=== PATIENT | female | born 1995 | race Caucasian/White ===

== ENCOUNTER 2016-10-31 14:00 | Emergency (ER) | payer MEDICAID, OTHER ==
[~2016-10-31] VITALS: Wt 58.0 kg
[2016-10-31] MEDS ORDERED: ACETAMINOPHEN 325 MG TAB PO STA (15:20)
[2016-10-31 15:53] LABS: BASOPHILS % 0.4 % (0.0-2.0); EOSINOPHILS % 0.2 % (0.0-7.0); HEMATOCRIT 38.2 % (37.0-47.0); HEMOGLOBIN 12.9 g/dl (12.0-16.0); LYMPHOCYTES # 1.9 10^3/ul (0.8-2.9); LYMPHOCYTES % 16.9 % (18.0-55.0); MEAN CORPUSCULAR HEMOGLOBIN 29.9 pg (29.0-33.0); MEAN CORPUSCULAR HGB CONC 33.7 g/dl (32.0-37.0); MEAN CORPUSCULAR VOLUME 88.6 fl (72.0-104.0); MEAN PLATELET VOLUME 9.9 fl (7.4-10.4); MONOCYTE # 0.5 10^3/ul (0.3-0.9); MONOCYTES % 4.3 % (0.0-13.0); NEUTROPHIL # 8.6 10^3/ul (1.6-7.5); NEUTROPHILS % 78.2 % (30.0-74.0); PLATELET COUNT 214 10^3/UL (140-440); RED BLOOD COUNT 4.31 10^6/ul (4.20-5.40); RED CELL DISTRIBUTION WIDTH 13.5 % (11.5-14.5)
[2016-10-31 16:09] LABS: CONDITION 1
[2016-10-31 16:15] LABS: ADD UMIC YES; URINE BILIRUBIN (Dip) NEGATIVE (NEGATIVE); URINE BLOOD (Dip) 3+ (NEGATIVE); URINE COLOR LT. RED (YELLOW); URINE GLUCOSE (Dip) NEGATIVE (NEGATIVE); URINE KETONES (Dip) 3+ (NEGATIVE); URINE LEUKOCYTE ESTERASE (Dip) TRACE (NEGATIVE); URINE NITRITE (Dip) NEGATIVE (NEGATIVE); URINE TOTAL PROTEIN (Dip) 2+ (NEGATIVE); URINE UROBILINOGEN (Dip) 0.2 E.U./dL (0.1-1.0)
[2016-10-31 16:37] LABS: SQUAMOUS EPITHELIAL CELL,UR FEW; URINE RBCS >200 /HPF (0)
--- NOTE | 2016-10-31 17:04 | RADRPT ---
PROCEDURE: OB Ultrasound. CLINICAL INDICATION: Positive test. Vaginal bleeding. TECHNIQUE: Ultrasound of the pelvis was performed with transabdominal sonography in the axial and sagittal planes. COMPARISON: No prior study is available for comparison. FINDINGS: There is a single intrauterine gestational sac. pole and yolk sac are present. There is heart motion. heart rate is 176 beats per minute. [place]-rump length is 3.68 cm. Mean sac diameter is 4.25 cm. Menstrual age by ultrasound dates is 10 weeks 2 days. This indicates an expected date of delivery of 05/27/2017. The right ovary is not visualized. The left ovary appears normal measuring 3.2 x 1.6 x 1.8 cm. Color Doppler and pulsed Doppler sonography demonstrate normal flow to the the left ovary There is no other pelvic mass or free fluid. IMPRESSION: 1. Single live intrauterine gestation of 10 weeks 2 days menstrual age by ultrasound dates. 2. Expected date of delivery is 05/27/2017. RPTAT: QQ .Randy Vallejo MD, MD Date Time Electronically viewed and signed by .Randy Vallejo MD, on 10/31/2016 17:04 .R/
[2016-10-31] MEDS ORDERED: ACET325T33 PO (17:23)
[2016-10-31] MEDS ORDERED: CEPH-443 PO (17:23)
[2016-10-31 17:46] VITALS: BP 125/63; PULSE 77; RESP 18
--- NOTE | 2016-10-31 17:58 | ERD ---
ER Documentation Chief Complaint Date/Time DATE: 10/31/16 TIME: 17:54 Chief Complaint VAG BLEED APPROX 11WKS PREG, MILD LOW ABD CRAMP HPI 21-year-old female with no significant past medical history is a presents to the ED complaining of lower abdominal cramping that started a few days ago and states that she is currently about 10 weeks . States that she has vaginal bleeding that started earlier today and has had to change 2 pads. Reports that her RESIDENTIAL ROOFER is Dr. Quinton Gutierrez. States that her last menses was in the beginning of July. She is unsure of the exact date. Denies any vaginal discharge, nausea, vomiting, diarrhea, chest pain, shortness of breath, constipation, dysuria, urgency, frequency, hematuria. ROS All systems reviewed and are negative except as per history of present illness. Medications Home Meds Active Scripts Acetaminophen* (Tylophen*) 500 Mg Capsule, 1 CAP PO Q6H Y for PAIN AND OR ELEVATED TEMP, #20 CAP Prov:MUKUND IVAN NP 11/02/16 Cephalexin* (Keflex*) 500 Mg Capsule, 500 MG PO QID for 7 Days, CAP Prov:LYNN SCHWAB PA-C 10/31/16 Acetaminophen* (Tylenol*) 325 Mg Tablet, 1 TAB PO Q8 Y for PAIN AND OR ELEVATED TEMP, #20 TAB Prov:LYNN SCHWAB PA-C 10/31/16 Allergies Allergies: Coded Allergies: No Known Allergy (Unverified , 11/02/16) PMhx/Soc Medical and Surgical Hx: pt denies Medical Hx, pt denies Surgical Hx Hx Alcohol Use: No Hx Substance Use: No Hx Tobacco Use: No Physical Exam Vitals Vital Signs Date Time Temp Pulse Resp B/P Pulse Ox O2 Delivery O2 Flow Rate FiO2 10/31/16 17:46 77 18 125/63 99 Room Air 10/31/16 14:13 98.2 101 20 125/87 98 Physical Exam Const: Uws-fre-lroazsrxf, well-nourished. In no acute distress. Head: Atraumatic, normocephalic Eyes: Normal Conjunctiva without injection. No purulent discharge. ENT: Normal external ear, nose. Moist oropharynx without tonsillar exudates. Non -erythematous pharynx. Uvula midline. No drooling. No trismus. Neck: No cervical midline tenderness. Full range of motion. No meningismus. No cervical lymphadenopathy. No JVD. Resp: Clear to auscultation bilaterally. No wheezing, rhonchi, rales, or crackles. No accessory muscle use. No retractions. Cardio: Regular rate and rhythm. No murmurs, rubs or gallops. Abd: Soft, slight suprapubic tenderness, non distended. Normal bowel sounds. No palpable masses. No rebound tenderness. No guarding. Negative McBurney's point. Negative psoas sign. Negative obturator sign. Skin: No petechiae or rashes Back: No midline tenderness. No CVA tenderness. Ext: No cyanosis, or edema. Neur: Awake and alert. Normal gait. Normal coordination. Psych: Normal Mood and Affect Result Diagram: 10/31/16 1538 Results 24 hrs Laboratory Tests Test 10/31/16 15:38 10/31/16 15:43 Basophils # 0.010^3/ul Basophils % 0.4% Beta HCG, Quantitative 407457.0mIU/ml Eosinophils # 0.010^3/ul Eosinophils % 0.2% Hematocrit 38.2% Hemoglobin 12.9g/dl Lymphocytes # 1.910^3/ul Lymphocytes % 16.9% Mean Corpuscular Hemoglobin 29.9pg Mean Corpuscular Hemoglobin Concent 33.7g/dl Mean Corpuscular Volume 88.6fl Mean Platelet Volume 9.9fl Monocytes # 0.510^3/ul Monocytes % 4.3% Neutrophils # 8.610^3/ul Neutrophils % 78.2% Nucleated Red Blood Cells # 0.010^3/ul Nucleated Red Blood Cells % 0.0/100WBC Platelet Count 34315^3/UL Red Blood Count 4.3110^6/ul Red Cell Distribution Width 13.5% White Blood Count 11.010^3/ul Urine Bilirubin NEGATIVE Urine Clarity CLOUDY Urine Color LT. RED Urine Glucose NEGATIVE% Urine Hemoglobin 3+ Urine Ketones 3+ Urine Leukocyte Esterase TRACE Urine Microscopic RBC >200/HPF Urine Microscopic WBC 2-5/HPF Urine Nitrite NEGATIVE Urine Specific [place] >=1.030 Urine Squamous Epithelial Cells FEW Urine Total Protein 2+ Urine Urobilinogen 0.2 E.U./dL Urine pH 5.5 Current Medications Medications (Trade) Dose Ordered Sig/Joseph Route PRN Reason Start Time Stop Time Status Last Admin Dose Admin Acetaminophen (Tylenol Tab) 650 mg ONCE STAT PO 10/31/16 15:20 10/31/16 15:22 DC 10/31/16 15:32 Procedures/MDM This is a 21-year-old female with no significant past medical history who is a presents to the ED complaining of currently being and having vaginal bleeding. Patient is afebrile and nontoxic-appearing. Patient has normal vital signs. An ultrasound, beta-hCG, CBC, type and RH, UA was ordered to evaluate patient. CBC: No evidence of severe infection or anemia Urine: No elevation in nitrites, trace leukocyte esterase, hematuria. Rh: O positive. No indication for Rhogam at this time. beta Hc PROCEDURE: OB Ultrasound. CLINICAL INDICATION: Positive test. Vaginal bleeding. TECHNIQUE: Ultrasound of the pelvis was performed with transabdominal sonography in the axial and sagittal planes. COMPARISON: No prior study is available for comparison. FINDINGS: There is a single intrauterine gestational sac. pole and yolk sac are present. There is heart motion. heart rate is 176 beats per minute. [place]-rump length is 3.68 cm. Mean sac diameter is 4.25 cm. Menstrual age by ultrasound dates is 10 weeks 2 days. This indicates an expected date of delivery of 05/27/2017. The right ovary is not visualized. The left ovary appears normal measuring 3.2 x 1.6 x 1.8 cm. Color Doppler and pulsed Doppler sonography demonstrate normal flow to the the left ovary There is no other pelvic mass or free fluid. IMPRESSION: 1. Single live intrauterine gestation of 10 weeks 2 days menstrual age by ultrasound dates. 2. Expected date of delivery is 05/27/2017. Patient's bleeding symptoms have stabilized while in the department. Patient has a single IUP estimated to be 10 weeks and 2 days. Low suspicion for symptomatic anemia, ectopic , sepsis, PID, appendicitis, ovarian torsion, tubo-ovarian abscess, surgical abdomen, or other emergent conditions. Patient was educated that there is a risk for threatened . Discharge medications: Keflex, Tylenol Patient to follow up with RESIDENTIAL ROOFER in 2 days for further evaluation and treatment. Patient is to return sooner to the ED for any worsening symptoms. Patient's questions were answered. Patient understood and agreed with discharge plan. Departure Diagnosis: Primary Impression: Vaginal bleeding in patient at less than 20 weeks ges... Condition: Stable Patient Instructions: Urinary Tract Infections in Women, Bleeding During Early Referrals: MELANI TYLER MD (PCP) [facility] YOU HAVE RECEIVED A MEDICAL SCREENING EXAM AND THE RESULTS INDICATE THAT YOU DO NOT HAVE A CONDITION THAT REQUIRES URGENT TREATMENT IN THE EMERGENCY DEPARTMENT. FURTHER EVALUATION AND TREATMENT OF YOUR CONDITION CAN WAIT UNTIL YOU ARE SEEN IN YOUR DOCTORS OFFICE WITHIN THE NEXT 1-2 DAYS. IT IS YOUR RESPONSIBILITY TO MAKE AN APPOINTMENT FOR FOLOW-UP CARE. IF YOU HAVE A PRIMARY DOCTOR --you should call your primary doctor and schedule an appointment IF YOU DO NOT HAVE A PRIMARY DOCTOR YOU CAN CALL OUR PHYSICIAN REFERRAL HOTLINE AT IF YOU CAN NOT AFFORD TO SEE A PHYSICIAN YOU CAN CHOSE FROM THE FOLLOWING [facility] [address] [facility] [address] [facility] [facility] [address] [facility] [address] [facility] [address] [facility]. [facility] [address] [facility]. [facility] YOU HAVE RECEIVED A MEDICAL SCREENING EXAM AND THE RESULTS INDICATE THAT YOU DO NOT HAVE A CONDITION THAT REQUIRES URGENT TREATMENT IN THE EMERGENCY DEPARTMENT. FURTHER EVALUATION AND TREATMENT OF YOUR CONDITION CAN WAIT UNTIL YOU ARE SEEN IN YOUR DOCTORS OFFICE WITHIN THE NEXT 1-2 DAYS. IT IS YOUR RESPONSIBILITY TO MAKE AN APPOINTMENT FOR FOLOW-UP CARE. IF YOU HAVE A PRIMARY DOCTOR --you should call your primary doctor and schedule and appointment IF YOU DO NOT HAVE A PRIMARY DOCTOR YOU CAN CALL OUR PHYSICIAN REFERRAL HOTLINE AT . IF YOU CAN NOT AFFORD TO SEE A PHYSICIAN YOU CAN CHOSE FROM THE FOLLOWING [facility] INSTITUTIONS: [facility] [address] [place] [address] [facility] [address] [place] [address] [facility] [address] [place] [address] RESIDENTIAL R[place] [address] [facility] [address] [place] [address] OFFICE FAX , [facility] [address] [place] [address] [address] [facility] [address] [place] [address] [address] VELEZ [facility] [address], [address], [facility] [address] [facility] [address] [place] [address] [facility] [address] [place] [address] [address] [facility] [address] - BRODIE SMITH [address], [place] [address] [address] TARANGO, TOM [address] [facility], [place] [address] [address] [facility] [address] [place], [place] [id number] [facility] Hours: 8:00 am - 5:00 pm Additional Instructions: FOLLOW UP WITH YOUR RESIDENTIAL ROOFER in 2 days. Pelvic Rest recommended. No heavy lifting. Return to this facility if you are not improving as expected. LYNN SCHWAB PA-C Oct 31, 2016 17:58
== END 2016-10-31 17:47 | disposition home or self-care (01) ==
LOC: FTE 14:00
DX: O20.9 Hemorrhage in early pregnancy, unspecified (principal); Z3A.10 10 weeks gestation of pregnancy
CPT/HCPCS: 36415; 76801; 81001; 84702; 85025; 86900; 86901; Z7502; Z7610; 81003

== ENCOUNTER 2016-11-02 00:15 | Emergency (ER) | payer MEDICAID ==
[~2016-11-02] VITALS: Ht 162.6 cm; Wt 61.8 kg
[~2016-11-02 00:15] MED LIST: ACET325T33 PO; CEPH-443 PO
[2016-11-02 00:24] VITALS: Ht 162.6 cm; Wt 61.8 kg
--- NOTE | 2016-11-02 04:32 | RADRPT ---
PROCEDURE: ULTRASOUND OBSTETRICAL CLINICAL INDICATION: 21-year-old female with vaginal bleeding. TECHNIQUE: Multiple sonographic images of the pelvis were obtained. The images were reviewed on a PACS workstation. COMPARISON: Ultrasound OB October 31, 2016. FINDINGS: There is a single intrauterine gestation. There is a subchorionic hemorrhage identified measuring ap proximately 2.2 x 3.3 cm. There is an additional heterogeneous focus of abnormal echogenicity withi n the lower uterine segment measuring approximately 2.7 x 3.1 x 4.6 cm suggestive of blood products. The mean sac diameter is 4.55 cm. There is a pole present with a crown-rump length of 3.97 cm . This yields an estimated gestational age of 10 weeks and 4 days. The estimated date of delivery is May 27, 2017. Cardiac activity is present at 166 beats per minute. There is no evidence for free fluid. The ovaries were not visualized bilaterally. No adnexal masses are noted. IMPRESSION: 1. Single intrauterine gestation of approximately 10 weeks 4 days with moderate subchorionic hemorr yajaira. The estimated date of delivery is May 27, 2017. 2. Abnormal echogenicity within the lower uterine segment suggestive of blood products. 3. The ovaries were not visualized bilaterally. .Warren Ko MD, Date Time Electronically viewed and signed by .Warren Ko MD, on 11/02/2016 04:31 .Teressa
--- NOTE | 2016-11-02 04:41 | ERD ---
ER Documentation Chief Complaint Date/Time DATE: 11/02/16 TIME: 04:35 Chief Complaint Vaginal bleeding and pelvic pain since 2329. HPI 21-year-old female presents to emergency department for complaints of vaginal bleeding and pelvic pain started at 11:30 last night. Patient has been having vaginal bleeding, passed more clots, soaking 1 pad. Patient is approximately 10 weeks . 1 para 0 0. Patient was seen here 2 days ago for the same problem, was bleeding at that time. Patient is complaining of pelvic pain, cramping pain, 3/10 scale, accompanying the vaginal bleeding. Patient denies hematuria or dysuria. Patient denies any fever or chills. LMP 03/2016 ROS All systems reviewed and are negative except as per history of present illness. Medications Home Meds Active Scripts Acetaminophen* (Tylophen*) 500 Mg Capsule, 1 CAP PO Q6H Y for PAIN AND OR ELEVATED TEMP, #20 CAP Prov:MUKUND IVAN NP 11/02/16 Cephalexin* (Keflex*) 500 Mg Capsule, 500 MG PO QID for 7 Days, CAP Prov:LYNN SCHWAB PA-C 10/31/16 Acetaminophen* (Tylenol*) 325 Mg Tablet, 1 TAB PO Q8 Y for PAIN AND OR ELEVATED TEMP, #20 TAB Prov:LYNN SCHWAB PA-C 10/31/16 Allergies Allergies: Coded Allergies: No Known Allergy (Unverified , 11/02/16) PMhx/Soc Medical and Surgical Hx: pt denies Medical Hx, pt denies Surgical Hx History of Surgery: No Anesthesia Reaction: No Hx Neurological Disorder: No Hx Respiratory Disorders: No Hx Cardiac Disorders: No Hx Psychiatric Problems: No Hx Miscellaneous Medical Probl: No Hx Alcohol Use: No Hx Substance Use: No Hx Tobacco Use: No Smoking Status: Never smoker FmHx Family History: No coronary disease, No diabetes, No other Physical Exam Vitals Vital Signs Date Time Temp Pulse Resp B/P Pulse Ox O2 Delivery O2 Flow Rate FiO2 11/02/16 06:54 98.2 75 19 118/74 100 Room Air 11/02/16 00:24 98.5 87 18 110/66 99 Physical Exam GENERAL: The patient is well developed and appropriate for usual state of health, in no apparent distress. CHEST: Clear to auscultation bilaterally. There are no rales, wheezes or rhonchi. HEART: Regular rate and rhythm. No murmurs, clicks, rubs or gallops. No S3 or S4. ABDOMEN: Soft, nontender and nondistended. Good bowel sounds. No rebound or guarding. No gross peritonitis. No gross organomegaly or masses. No Nicolas sign or McBurney point tenderness. BACK: No midline or flank tenderness. EXTREMITIES: Equal pulses bilaterally. There is no peripheral clubbing, cyanosis or edema. No focal swelling or erythema. Full range of motion. Grossly neurovascularly intact. NEURO: Alert and oriented. Cranial nerves 2-12 intact. Motor strength in all 4 extremities with 5/5 strength. Sensation grossly intact. Normal speech and gait. SKIN: There is no apparent rash or petechia. The skin is warm and dry. HEMATOLOGIC AND LYMPHATIC: There is no evidence of excessive bruising or lymphedema. No gross cervical, axillary, or inguinal lymphadenopathy. VAGINAL: moderate amount of blood in the vaginal vault. The cervical os is closed, there is no adnexal tenderness or cervical motion tenderness. Result Diagram: 11/02/16 0433 Results 24 hrs Laboratory Tests Test 11/02/16 04:33 Basophils # 0.010^3/ul Basophils % 0.4% Beta HCG, Quantitative 946225.0mIU/ml Eosinophils # 0.010^3/ul Eosinophils % 0.6% Hematocrit 35.9% Hemoglobin 11.9g/dl Lymphocytes # 2.010^3/ul Lymphocytes % 24.2% Mean Corpuscular Hemoglobin 29.5pg Mean Corpuscular Hemoglobin Concent 33.3g/dl Mean Corpuscular Volume 88.8fl Mean Platelet Volume 9.8fl Monocytes # 0.410^3/ul Monocytes % 5.1% Neutrophils # 5.610^3/ul Neutrophils % 69.7% Nucleated Red Blood Cells # 0.010^3/ul Nucleated Red Blood Cells % 0.0/100WBC Platelet Count 41714^3/UL Red Blood Count 4.0410^6/ul Red Cell Distribution Width 13.5% Urine Bacteria FEW Urine Bilirubin NEGATIVE Urine Clarity CLEAR Urine Color LT. YELLOW Urine Glucose NEGATIVE% Urine Hemoglobin 3+ Urine Ketones NEGATIVE Urine Leukocyte Esterase NEGATIVE Urine Microscopic RBC 2-5/HPF Urine Microscopic WBC 0-2/HPF Urine Nitrite NEGATIVE Urine Specific [place] <=1.005 Urine Squamous Epithelial Cells MODERATE Urine Total Protein NEGATIVE Urine Urobilinogen 0.2 E.U./dL Urine pH 5.5 White Blood Count 8.110^3/ul PROCEDURE: ULTRASOUND OBSTETRICAL CLINICAL INDICATION: 21-year-old female with vaginal bleeding. TECHNIQUE: Multiple sonographic images of the pelvis were obtained. The images were reviewed on a PACS workstation. COMPARISON: Ultrasound OB October 31, 2016. FINDINGS: There is a single intrauterine gestation. There is a subchorionic hemorrhage identified measuring approximately 2.2 x 3.3 cm. There is an additional heterogeneous focus of abnormal echogenicity within the lower uterine segment measuring approximately 2.7 x 3.1 x 4.6 cm suggestive of blood products. The mean sac diameter is 4.55 cm. There is a pole present with a crown-rump length of 3.97 cm. This yields an estimated gestational age of 10 weeks and 4 days. The estimated date of delivery is May 27, 2017. Cardiac activity is present at 166 beats per minute. There is no evidence for free fluid. The ovaries were not visualized bilaterally. No adnexal masses are noted. IMPRESSION: 1. Single intrauterine gestation of approximately 10 weeks 4 days with moderate subchorionic hemorrhage. The estimated date of delivery is May 27, 2017. 2. Abnormal echogenicity within the lower uterine segment suggestive of blood products. 3. The ovaries were not visualized bilaterally. .Warren Ko MD, MD Date Time Electronically viewed and signed by .Warren Ko MD, on 11/02/2016 04:31 .M/ CC: MUKUND IVAN NP Procedures/MDM Medical Decision Making: Patients vaginal bleeding is most likely consistent of possible threatened . Patient does not show any evidence of hypovolemic shock. Patients hemoglobin and hematocrit is stable. There is low suspicion for ectopic . KOBE results show a viable at 10 weeks with subchorionic hemorrhage most likely causing the bleeding BetaHCG Quantitative is appropriate for The patient is Rh+, does not need RhoGAM this time. There is no signs of symptoms of dehydration. There is low suspicion for sepsis. Patient appears well and is hemodynamically stable. Disposition: Home. Condition: Stable Disposition: Tylenol Instructions: Patient is advised to do bed rest, avoid heavy lifting, and avoid having sex until cleared by OB doctor. Patient is advised to follow up with OB doctor or here at the ER in 48 hours for reevaluation of symptoms, repeat beta HCG quantitative and ultrasound. Patient is advised that is symptoms are worst, severe bleeding, dizziness, severe abdominal pain, fever, worst signs and symptoms to return to the emergency department immediately. Departure Diagnosis: Primary Impression: Subchorionic hemorrhage Fetus number: single or unspecified fetus Trimester: first trimester Qualified Code: O41.8X10 - Subchorionic hemorrhage, first trimester, not applicable or unspecified fetus Additional Impressions: Intrauterine Vaginal bleeding Condition: Stable Patient Instructions: Possible Miscarriage (Threatened ) Additional Instructions: Patient is advised to do bed rest, avoid heavy lifting, and avoid having sex until cleared by OB doctor. Patient is advised to follow up with OB doctor or here at the ER in 48 hours for reevaluation of symptoms, repeat beta HCG quantitative and ultrasound. Patient is advised that is symptoms are worst, severe bleeding, dizziness, severe abdominal pain, fever, worst signs and symptoms to return to the emergency department immediately. MUKUND IVAN NP Nov 02, 2016 04:41
[2016-11-02 05:02] LABS: BASOPHILS % 0.4 % (0.0-2.0); EOSINOPHILS % 0.6 % (0.0-7.0); HEMATOCRIT 35.9 % (37.0-47.0); HEMOGLOBIN 11.9 g/dl (12.0-16.0); LYMPHOCYTES % 24.2 % (18.0-55.0); MEAN CORPUSCULAR HEMOGLOBIN 29.5 pg (29.0-33.0); MEAN CORPUSCULAR HGB CONC 33.3 g/dl (32.0-37.0); MEAN CORPUSCULAR VOLUME 88.8 fl (72.0-104.0); MEAN PLATELET VOLUME 9.8 fl (7.4-10.4); MONOCYTE # 0.4 10^3/ul (0.3-0.9); MONOCYTES % 5.1 % (0.0-13.0); NEUTROPHIL # 5.6 10^3/ul (1.6-7.5); NEUTROPHILS % 69.7 % (30.0-74.0); PLATELET COUNT 206 10^3/UL (140-440); RED BLOOD COUNT 4.04 10^6/ul (4.20-5.40); RED CELL DISTRIBUTION WIDTH 13.5 % (11.5-14.5); UNCORRECTED WBC 8.1 10^3/ul (4.8-10.8); WHITE BLOOD COUNT 8.1 10^3/ul (4.8-10.8)
[2016-11-02 05:04] LABS: CONDITION 1
[2016-11-02 05:14] LABS: ADD UMIC YES; URINE BILIRUBIN (Dip) NEGATIVE (NEGATIVE); URINE BLOOD (Dip) 3+ (NEGATIVE); URINE COLOR LT. YELLOW (YELLOW); URINE GLUCOSE (Dip) NEGATIVE (NEGATIVE); URINE KETONES (Dip) NEGATIVE (NEGATIVE); URINE LEUKOCYTE ESTERASE (Dip) NEGATIVE (NEGATIVE); URINE NITRITE (Dip) NEGATIVE (NEGATIVE); URINE TOTAL PROTEIN (Dip) NEGATIVE (NEGATIVE); URINE UROBILINOGEN (Dip) 0.2 E.U./dL (0.1-1.0)
[2016-11-02 05:36] LABS: BACTERIA,URINE FEW; SQUAMOUS EPITHELIAL CELL,UR MODERATE
[2016-11-02] MEDS ORDERED: ACET500C5 PO (05:52)
[2016-11-02 06:54] VITALS: BP 118/74; PULSE 75; RESP 19; TEMP 98.2
== END 2016-11-02 06:55 | disposition home or self-care (01) ==
LOC: FTE 00:15
DX: O41.8X10 Other specified disorders of amniotic fluid and membranes, first trimester, not applicable or unspecified (principal); R10.2 Pelvic and perineal pain; Z3A.10 10 weeks gestation of pregnancy
CPT/HCPCS: 36415; 76801; 81001; 84702; 85025; Z7502; 81003

== ENCOUNTER 2017-05-07 18:23 | Inpatient (IN) | payer OTHER ==
[~2017-05-07] VITALS: Ht 162.6 cm; Wt 74.1 kg
[~2017-05-07 18:23] MED LIST changes: +ACET500C5 PO
[2017-05-07] MEDS: LACTATED RINGER'S 1,000 ML IV SCH (19:38)
[2017-05-07 19:42] VITALS: Ht 162.6 cm; Wt 74.1 kg
[2017-05-07] MEDS ORDERED: IBUPROFEN 600 MG TAB PO PRN (20:00)
[2017-05-07] MEDS ORDERED: MISOPROSTOL 200 MCG TAB PR PRN (20:00)
[2017-05-07] MEDS ORDERED: LACTATED RINGER'S 1,000 ML IV PRN (20:00)
[2017-05-07] MEDS ORDERED: CARBOPROST 250 MCG INJ IM PRN (20:00)
[2017-05-07] MEDS ORDERED: OXYTOCIN 30 UNITS/LR 500 ML IV PRN (20:00)
[2017-05-07] MEDS ORDERED: METHYLERGONOVINE 0.2 MG INJ IM PRN (20:00)
[2017-05-07] MEDS ORDERED: OXYTOCIN 30 UNITS/LR 500 ML IV SCH ×2 (20:00)
[2017-05-07] MEDS ORDERED: BUTORPHANOL 2 MG INJ IV PRN (20:00)
[2017-05-07] MEDS ORDERED: AMPICILLIN 2 GM/NS (PMX) 100 ML IV ONE (20:00)
[2017-05-07] MEDS ORDERED: LIDOCAINE 1% (MPF) 30 ML INJ INJ PRN (20:00)
[2017-05-07 20:31] LABS: BASOPHILS % 0.4 % (0.0-2.0); EOSINOPHILS % 0.3 % (0.0-7.0); HEMATOCRIT 34.9 % (37.0-47.0); HEMOGLOBIN 11.3 g/dl (12.0-16.0); LYMPHOCYTES # 2.1 10^3/ul (0.8-2.9); LYMPHOCYTES % 20.1 % (15.0-51.0); MEAN CORPUSCULAR HEMOGLOBIN 26.4 pg (29.0-33.0); MEAN CORPUSCULAR HGB CONC 32.4 g/dl (32.0-37.0); MEAN CORPUSCULAR VOLUME 81.5 fl (82.0-101.0); MEAN PLATELET VOLUME 12.7 fl (7.4-10.4); MONOCYTE # 0.5 10^3/ul (0.3-0.9); MONOCYTES % 4.8 % (0.0-11.0); NEUTROPHILS % 73.4 % (39.0-77.0); PLATELET COUNT 214 10^3/UL (140-415); RED BLOOD COUNT 4.28 10^6/ul (4.20-5.40); RED CELL DISTRIBUTION WIDTH 14.7 % (11.5-14.5); WHITE BLOOD COUNT 10.3 10^3/ul (4.8-10.8)
[2017-05-07 20:39] LABS: INR 0.95; PROTIME 12.7 Sec (12.2-14.2)
[2017-05-07 20:40] LABS: PARTIAL THROMBOPLASTIN TIME 28.9 Sec (25.0-35.0)
[2017-05-07] MEDS ORDERED: FENTAnyl 2MCG/ML-ROPIV 0.2% 100 ML ONE (23:55)
[2017-05-08] MEDS ORDERED: OXYTOCIN 30 UNITS/LR 500 ML IV SCH
[2017-05-08] MEDS: AMPICILLIN 1 GM/NS (PMX) 50 ML IV SCH ×4 (00:58→12:30)
[2017-05-08] MEDS ORDERED: NALOXONE (0.4 MG/ML) INJ IV PRN (03:00)
[2017-05-08] MEDS: FENTAnyl 2MCG/ML-ROPIV 0.2% 100 ML BAG EPI SCH ×3 (04:21→11:21)
[2017-05-08] MEDS ORDERED: DIPHENHYDRAMINE 50 MG INJ ONE (04:27)
[2017-05-08] MEDS ORDERED: DIPHENHYDRAMINE 50 MG INJ IV ONE (04:30)
[2017-05-08] MEDS: LACTATED RINGER'S 1,000 ML IV SCH ×2 (05:18→12:00)
--- NOTE | 2017-05-08 08:04 | RADRPT ---
PROCEDURE: Limited OB ultrasound CLINICAL INDICATION: position TECHNIQUE: Sonographic evaluation to assess the position was performed. Transabdominal imag ing of the gravid uterus was performed. COMPARISON: No prior exam is available for comparison. FINDINGS: There is a single live intrauterine with a heart rate of 153 bpm. position is cephalic. The placenta is fundal. IMPRESSION: Cephalic presentation. RPTAT: HH .Silvia Kaplan MD, MD Date Time Electronically viewed and signed by .Silvia Kaplan MD, on 05/08/2017 08:04 .G/
--- NOTE | 2017-05-08 10:11 | HP ---
Date/Time of Note Date/Time of Note DATE: 05/08/17 TIME: 10:10 OB - History Hx of Present Free Text/Dictation at 37 weeks with leaking of fluid Care: Good Care Ultrasounds: Normal mid trimester US Obstetrical Complications: None Medical Complications: None Past Family/Social History * Past Medical, Surgical, Family and Obstetric Histories reviewed from chart. OB Admission Exam Physical Exam HEENT: WNL Heart: Rhythm Normal Lungs: Clear, Equal Abdomen: WNL Extremities: Normal Reflexes: Normal Last 72 hours Lab Results CBC & BMP 05/07/17 19:45 OB Assessment/Plan Reason for admission: rupture of membranes Plan: Induction XAVIER ORTIZ MD May 08, 2017 10:11
--- NOTE | 2017-05-08 13:27 | LDN ---
Date/Time of Note Date/Time of Note DATE: 05/08/17 TIME: 13:26 Delivery Summary term preg Placenta Delivered: Spontaneously Meconium: none Episiotomy: No Perineal laceration: 2 Anesthesia type: Local Estimated blood loss: 350 Sponge & Needle done & correct: Yes All needle counts correct: Yes Any foreign bodies felt in the: No Problems: XAVIER ORTIZ MD May 08, 2017 13:27
[2017-05-08 15:00] VITALS: BP_SYST 105; BP_SYST 110; BP_DIAS 55; BP_DIAS 62; PULSE 79; PULSE 84; RESP 20
[2017-05-08] MEDS ORDERED: CARBOPROST 250 MCG INJ IM PRN (15:00)
[2017-05-08] MEDS ORDERED: MISOPROSTOL 200 MCG TAB PR PRN (15:00)
[2017-05-08] MEDS ORDERED: MAGNESIUM HYDROXIDE 30ML CUP PO PRN (15:00)
[2017-05-08] MEDS ORDERED: WITCH HAZEL/GLYCERIN PAD PR PRN (15:00)
[2017-05-08] MEDS ORDERED: DIPHENHYDRAMINE 25 MG CAP PO PRN (15:00)
[2017-05-08] MEDS ORDERED: BENZOCAINE 20% 56 ML SPRAY TOP PRN (15:00)
[2017-05-08] MEDS ORDERED: OXYTOCIN 30 UNITS/LR 500 ML IV PRN (15:00)
[2017-05-08] MEDS ORDERED: HYDROCODONE/APAP (5/325) TAB PO PRN (15:00)
[2017-05-08] MEDS ORDERED: SENNA/DOCUSATE NA (8.6MG/50MG) TAB PO PRN (15:00)
[2017-05-08] MEDS ORDERED: LANOLIN 7 GM TUBE TOP PRN (15:00)
[2017-05-08] MEDS ORDERED: METHYLERGONOVINE 0.2 MG INJ IM PRN (15:00)
[2017-05-08] MEDS ORDERED: ACETAMINOPHEN 325 MG TAB PO PRN (15:00)
[2017-05-08] MEDS ORDERED: ZOLPIDEM 5 MG TAB PO PRN (15:00)
[2017-05-08 16:04] VITALS: BP 116/65; PULSE 19; RESP 20
[2017-05-08 17:00] VITALS: BP 111/65; PULSE 80; RESP 18
[2017-05-08] MEDS: IBUPROFEN 800 MG TAB PO SCH ×2 (18:22→23:39)
[2017-05-08] MEDS: OXYTOCIN 30 UNITS/LR 500 ML IV SCH ×2 (18:48→19:27)
[2017-05-08] MEDS: LACTATED RINGER'S 1,000 ML IV* SCH ×2 (19:27→20:46)
[2017-05-08 19:55] VITALS: BP 116/69; PULSE 84; RESP 19
[2017-05-08 23:55] VITALS: BP 107/63; PULSE 89; RESP 19
[2017-05-09 04:20] VITALS: BP 105/59; PULSE 84; RESP 19
[2017-05-09] MEDS: IBUPROFEN 800 MG TAB PO SCH ×4 (05:40→23:42)
[2017-05-09] MEDS: LACTATED RINGER'S 1,000 ML IV* SCH (06:25)
[2017-05-09 08:10] VITALS: BP 106/58; PULSE 89; RESP 18
[2017-05-09 11:53] LABS: BASOPHILS % 0.2 % (0.0-2.0); EOSINOPHILS % 0.3 % (0.0-7.0); HEMATOCRIT 25.7 % (37.0-47.0); HEMOGLOBIN 8.2 g/dl (12.0-16.0); LYMPHOCYTES # 1.7 10^3/ul (0.8-2.9); LYMPHOCYTES % 16.5 % (15.0-51.0); MEAN CORPUSCULAR HEMOGLOBIN 26.4 pg (29.0-33.0); MEAN CORPUSCULAR HGB CONC 31.9 g/dl (32.0-37.0); MEAN CORPUSCULAR VOLUME 82.6 fl (82.0-101.0); MEAN PLATELET VOLUME 12.7 fl (7.4-10.4); MONOCYTE # 0.4 10^3/ul (0.3-0.9); MONOCYTES % 4.2 % (0.0-11.0); NEUTROPHILS % 78.1 % (39.0-77.0); PLATELET COUNT 166 10^3/UL (140-415); RED BLOOD COUNT 3.11 10^6/ul (4.20-5.40); RED CELL DISTRIBUTION WIDTH 15.2 % (11.5-14.5)
[2017-05-09 16:00] VITALS: BP 101/56; PULSE 86; RESP 20
--- NOTE | 2017-05-09 17:11 | PN ---
Date/Time of Note Date/Time of Note DATE: 05/09/17 TIME: 17:08 OB Subjective Subjective Subjective Patient reports vaginal bleeding and the monitor.. Breast-feeding. Denies any complaint. Urinated. Reports only slight numbness in the lateral side of the left upper thigh OB Objective Objective Objective Const: Alert and oriented 4. Does not appear to be in any acute distress.] Head: [Atraumatic] Eyes: [Normal Conjunctiva] ENT: [Normal External Ears, Nose and Mouth.] Abd: [Soft, non tender, non distended. Normal bowel sounds] Skin: [No petechiae or rashes] No evidence of depression gait normal. No limping. No evidence of neuropathy Hematology - 72 Hrs Test 05/07/17 19:45 05/09/17 09:52 White Blood Count 10.310^3/ul (4.8-10.8) # 10.010^3/ul (4.8-10.8) Red Blood Count 4.2810^6/ul (4.20-5.40) 3.1110^6/ul (4.20-5.40) #L Hemoglobin 11.3g/dl (12.0-16.0) L 8.2g/dl (12.0-16.0) #L Hematocrit 34.9% (37.0-47.0) L 25.7% (37.0-47.0) #L Mean Corpuscular Volume 81.5fl (82.0-101.0) L 82.6fl (82.0-101.0) Mean Corpuscular Hemoglobin 26.4pg (29.0-33.0) L 26.4pg (29.0-33.0) L Mean Corpuscular Hemoglobin Concent 32.4g/dl (32.0-37.0) 31.9g/dl (32.0-37.0) L Red Cell Distribution Width 14.7% (11.5-14.5) H 15.2% (11.5-14.5) H Platelet Count 26878^3/UL (140-415) 57077^3/UL (140-415) # Mean Platelet Volume 12.7fl (7.4-10.4) #H 12.7fl (7.4-10.4) H Neutrophils % 73.4% (39.0-77.0) 78.1% (39.0-77.0) H Lymphocytes % 20.1% (15.0-51.0) 16.5% (15.0-51.0) Monocytes % 4.8% (0.0-11.0) 4.2% (0.0-11.0) Eosinophils % 0.3% (0.0-7.0) 0.3% (0.0-7.0) Basophils % 0.4% (0.0-2.0) 0.2% (0.0-2.0) Nucleated Red Blood Cells % 0.0/100WBC (0.0-0.0) 0.0/100WBC (0.0-0.0) Neutrophils # (Manual) 7.610^3/ul (1.7-7.5) H 7.810^3/ul (1.7-7.5) H Lymphocytes # 2.110^3/ul (0.8-2.9) 1.710^3/ul (0.8-2.9) Monocytes # 0.510^3/ul (0.3-0.9) 0.410^3/ul (0.3-0.9) Eosinophils # 0.010^3/ul (0.0-0.5) 0.010^3/ul (0.0-0.5) Basophils # 0.010^3/ul (0.0-0.1) 0.010^3/ul (0.0-0.1) Nucleated Red Blood Cells # 0.010^3/ul (0.0-0.0) 0.010^3/ul (0.0-0.0) OB Assessment/Plan Other Assessment: Status post day #1 Reports numbness in the lateral side of left thigh.. Likely related to positioning during labor. Gait normal Continue to observe. Anemia, likely under estimated blood loss. Asymptomatic Plan: Expectant Management Other plan: Routine care vitamin and iron daily Possible DC home tomorrow EMILY SIDDIQI MD May 09, 2017 17:11
[2017-05-09 20:00] VITALS: BP_SYST 112; BP_SYST 117; BP_DIAS 58; BP_DIAS 68; PULSE 82; PULSE 86; RESP 18
--- NOTE | 2017-05-09 20:10 | PD.PPDC ---
[employer] Discharge Instruction Condition Patient Condition: Stable Diet Diet: Resume Regular Diet Activity/Restrictions Activity: Normal Activity May Shower Restrictions: No Exercising No Lifting No Driving No Sexual Activity Nothing in the Vagina No Frankewing No Tampons, douche Wound/Drain Care Instructions Wound/Drain Care Instructions: Wash with soap and water Keep clean and dry Follow-up Follow-up with Physician: 3, Week/Weeks Return to clinic for FLOOR INSTALLER Instructions: Fever greater than 101 Chills Worsening abdominal pain Excessive Vaginal Bleeding More than 2 pads per hour Unable to tolerate diet OB Instructions: Breast Tenderness Depression Blurried Vision Headache Surgical Instructions: Incisional Drainage Incisional Redness XAVIER ORTIZ MD May 09, 2017 20:10
--- NOTE | 2017-05-09 20:10 | DS ---
Date/Time of Note Date/Time of Note DATE: 05/09/17 TIME: 20:09 Discharge Summary Admission/Discharge Info Admit Date/Time May 07, 2017 at 18:23 Discharge Date/Time Patient Condition: Stable Hospital Course UNREMARKABLE Home Meds Active Scripts Acetaminophen* (Tylophen*) 500 Mg Capsule, 1 CAP PO Q6H Y for PAIN AND OR ELEVATED TEMP, #20 CAP Prov:MUKUND IVAN NP 11/02/16 Cephalexin* (Keflex*) 500 Mg Capsule, 500 MG PO QID for 7 Days, CAP Prov:LYNN SCHWAB PA-C 10/31/16 Acetaminophen* (Tylenol*) 325 Mg Tablet, 1 TAB PO Q8 Y for PAIN AND OR ELEVATED TEMP, #20 TAB Prov:LYNN SCHWAB PA-C 10/31/16 Primary Care Provider Care Physician No Primary Pending Labs Laboratory Tests Test 05/09/17 09:52 White Blood Count 10.010^3/ul (4.8-10.8) Red Blood Count 3.1110^6/ul (4.20-5.40) Hemoglobin 8.2g/dl (12.0-16.0) Hematocrit 25.7% (37.0-47.0) Mean Corpuscular Volume 82.6fl (82.0-101.0) Mean Corpuscular Hemoglobin 26.4pg (29.0-33.0) Mean Corpuscular Hemoglobin Concent 31.9g/dl (32.0-37.0) Red Cell Distribution Width 15.2% (11.5-14.5) Platelet Count 35693^3/UL (140-415) Mean Platelet Volume 12.7fl (7.4-10.4) Neutrophils % 78.1% (39.0-77.0) Lymphocytes % 16.5% (15.0-51.0) Monocytes % 4.2% (0.0-11.0) Eosinophils % 0.3% (0.0-7.0) Basophils % 0.2% (0.0-2.0) Nucleated Red Blood Cells % 0.0/100WBC (0.0-0.0) Neutrophils # (Manual) 7.810^3/ul (1.7-7.5) Lymphocytes # 1.710^3/ul (0.8-2.9) Monocytes # 0.410^3/ul (0.3-0.9) Eosinophils # 0.010^3/ul (0.0-0.5) Basophils # 0.010^3/ul (0.0-0.1) Nucleated Red Blood Cells # 0.010^3/ul (0.0-0.0) XAVIER ORTIZ MD May 09, 2017 20:10
[2017-05-10 04:12] VITALS: BP 103/61; PULSE 80; RESP 18
[2017-05-10] MEDS: IBUPROFEN 800 MG TAB PO SCH ×3 (05:41→17:16)
[2017-05-10 07:20] VITALS: BP 109/71; PULSE 88; RESP 19
[2017-05-10] MEDS ORDERED: DIPHTH/TET/ACEL PERTUSS (ADULT) 0.5 ML VIAL IM* ONE (09:00)
[2017-05-10] MEDS ORDERED: VARICELLA VACCINE LIVE/PF 1,350 UNIT/0.5 ML ML SC* ONE (09:00)
[2017-05-10] MEDS ORDERED: MEASLES,MUMPS,RUBELLA VACCINE INJ SC* ONE (09:00)
[2017-05-10 16:00] VITALS: BP 123/75; PULSE 81; RESP 18
== END 2017-05-10 18:05 | disposition home or self-care (01) | DRG 775 ==
LOC: L-D 18:23 → PP1 05-08 14:50
PROVIDERS: ADMIT Obstetrics & Gynecology; ATTEND Obstetrics & Gynecology
PROC: 10E0XZZ Delivery of Products of Conception, External Approach (ICD-10-PCS; principal; 2017-05-07)
PROC: 3E033VJ Introduction of Other Hormone into Peripheral Vein, Percutaneous Approach (ICD-10-PCS; 2017-05-07)
DX: O80 Encounter for full-term uncomplicated delivery (principal); Z37.0 Single live birth; Z3A.37 37 weeks gestation of pregnancy
CPT/HCPCS: 62319; 76815; 85025; 85610; 85730; 86592; 86900; 86901; 87340; 90715; 90716; J0290; J1200; J2590; J3010; J7120